=== PATIENT | female | born 1985 | race Caucasian/White ===

== ENCOUNTER 2016-08-14 17:38 | Emergency (ER) | payer SELFPAY ==
[2016-08-14 17:50] VITALS: BP 129/88; PULSE 85; RESP 16; TEMP 98.1; O2SAT 99
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
[2016-08-14] MEDS ORDERED: Enoxaparin 80 mg Syringe SC STA (18:01)
[2016-08-14] MEDS ORDERED: Enoxaparin 80 mg Syringe ONE (18:07)
== END 2016-08-14 18:37 | disposition home or self-care (01) ==
LOC: C.ER 17:38
DX: M79.89 Other specified soft tissue disorders (principal)